=== PATIENT | female | born 1965 | race Caucasian/White ===

== ENCOUNTER 2017-07-22 22:19 | Emergency (ER) | payer MEDICAID ==
[~2017-07-22] VITALS: Ht 177.8 cm; Wt 99.3 kg
[~2017-07-22 22:19] MED LIST: AMOXICILLIN 50500 M1 PO; AMOXICILLIN 50500 MG PO; AMOXICILLIN875 MG PO; CYMBALTA20 MG PO; DOXYCYCLINE 10100 MG PO; HYDROCODON-ACE1 EAC8; HYDROCODON-ACE1 EACH PO; HYDROCODONE; KEFLEX500 MG PO; Magic Mouthwash PO; NORCO 5-325 TA1 EACH PO; PHENERGAN-CODE120 ML PO; TRAMADOL 50 MG50 MG PO; ZOFRAN ODT4 MG PO
[2017-07-22] MEDS ORDERED: PHENTERMINE (22:29)
[2017-07-22] MEDS ORDERED: POLYMYXIN B/TMP10 ML OPHTHALMIC (22:57)
[2017-07-22 23:07] VITALS: BP 150/80
== END 2017-07-22 23:08 | disposition home or self-care (01) ==
LOC: M.ERS 22:19
DX: H57.11 Ocular pain, right eye (principal); Z96.642 Presence of left artificial hip joint; Z88.1 Allergy status to other antibiotic agents